=== PATIENT | male | born 1965 | race Caucasian/White ===

== ENCOUNTER 2023-09-09 09:25 | Emergency (ER) | payer BC, SELFPAY ==
[2023-09-09 09:40] VITALS: BP 143/87; PULSE 84; RESP 19; TEMP 36.7; O2SAT 98; BMI 29.0
--- NOTE | 2023-09-09 09:58 | ED_ITS ---
Discharge Plan Referrals Follow up/Referrals: Provider,Referral, [Primary Care Provider] - See instructions Discharge [facility] [place] HPI General Stated complaint: lower pain abd pain Mode of Arrival: Ambulatory Source of Information: Patient Limitations: No Limitations Time Seen by Provider: 09/09/23 09:59 Description of Symptoms (Recalled from Triage Doc. by RN): PATIENT C/O MID-LEFT ABDOMINAL PAIN THAT RADIATES AROUND TO BACK AND WORSENS WHEN HE LIES DOWN X 1 WEEK HEENT Symptoms (Recalled from RN notes): No Resp Symptoms (Recalled from RN notes): No Skin Symptoms (Recalled from RN notes): No MS Symptoms (Recalled from RN notes): No Functional Status (Recalled from RN notes): WNL History of Present Illness Provider Complaint: 58 yr old male presents for c/o of left mid abd pain that started a week ago, having bloating,pressure and cramping, now pain has started to radiating into flank and he is unable to lay down due to pain. Was seen at [facility] in [place] yesterday and given acid med and it did not help. Related Data Allergies Allergy/AdvReac Type Severity Reaction Status Date / Time No Known Drug Allergies Allergy Unknown Verified 09/09/23 09:56 [NKDA] Worker's Comp Is this a Worker's Comp case?: No [facility] Disclaimer: The information contained in this section may have been updated after the patient was seen, as this information can be updated by other users. 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) Smoking Status: Current every day smoker alcohol intake: never current occupational status: employed Travel in the last 8 weeks: None ROS Obtained: Yes All systems reviewed & no additional complaints except as documented Constitutional Constitutional: Reports system reviewed and no additional complaints, except as documented Eyes Eyes: Reports system reviewed and no additional complaints, except as documented ENT Ears, Nose, Mouth, and Throat: Reports system reviewed and no additional complaints, except as documented Cardiovascular Cardiovascular: Reports system reviewed and no additional complaints, except as documented Respiratory Respiratory: Reports system reviewed and no additional complaints, except as documented Gastrointestinal Gastrointestingal: Reports system reviewed and no additional complaints, except as documented, as per HPI, abdominal pain, belching, bloating and cramping Musculoskeletal Musculoskeletal: Reports system reviewed and no additional complaints, except as documented and Reports as per HPI Integumentary/Breasts Skin/Breast: Reports system reviewed and no additional complaints, except as documented Neurologic Neurologic: Reports system reviewed and no additional complaints, except as documented Endocrine Endocrine: Reports system reviewed and no additional complaints, except as documented Hematologic/Lymphatic Henatologic/Lymphatic: Reports system reviewed and no additional complaints, except as documented Allergic/Immunologic Allergic/Immunologic: Reports system reviewed and no additional complaints, except as documented Physical Exam General General appearance: alert and in no apparent distress Head Head exam: atraumatic Eye Eye exam: Present normal appearance and PERRL ENT ENT exam: Present normal exam, normal oropharynx, mucous membranes moist and TM's normal bilaterally Neck Neck exam: Present normal inspection Respiratory Respiratory exam: Present normal lung sounds bilaterally Cardiovascular Cardiovascular exam: Present regular rate and normal rhythm Abdominal Exam Abdominal exam: Present distention (slightly), tenderness and normal bowel sounds Abdominal tenderness: Present diffuse Neurological Exam Neurological exam: Present alert and oriented X3 Skin Skin exam: Present warm and intact Medical Decision Making Medical Records Medical records reviewed: Yes I reviewed the patient's medical records. Jose Inquiry Pt receiving controlled substance: No Jose was queried for this patient: No Vital Signs: 09/09/23 09:40 Temperature 98.1 F Temperature Source Oral Pulse Rate [Left Brachial] 84 Respiratory Rate 19 Blood Pressure [Left Arm] 143/87 H Blood Pressure Mean [Left Arm] 105 Blood Pressure Source [Left Arm] Automatic Cuff Blood Pressure Position [Left Arm] Sitting 02 Sat by Pulse Oximetry 98 Oxygen Delivery Method Room Air Medical Decision Narrative: spoke with er md and transfred to ed for eval
--- NOTE | 2023-09-09 10:07 | PC.NURSE ---
PATIENT SENT TO ER PER Olena BYRD FOR FURTHER EVALUATION. REPORT GIVEN TO DR. LOONEY BY Olena BYRD APRN. PATIENT AMBULATED TO ER WITH [facility] STAFF ASSIST AT THIS TIME
[2023-09-09 10:10] VITALS: BP 159/76; PULSE 89; RESP 14; TEMP 36.8; O2SAT 98; BMI 29.6
--- NOTE | 2023-09-09 10:17 | ECG_ITS ---
APPROVED REPORT Exam: Resting ECG HR:85 bpm ECG Measurements Heart Rate 85 AXES OH 133 P 43 QRSd 97 QRS 77 QT 358 T 52 QTc 400 Conclusion SINUS RHYTHM Electronically signed by : CHRIS LOONEY, 09/09/2023 17:21:54
[2023-09-09 10:57] LABS: Chloride 100 mmol/L (98-107); Potassium 3.9 mmoL/L (3.5-5.1); Sodium 136 mmol/L (136-145)
[2023-09-09 10:59] LABS: Blood Urea Nitrogen 8 mg/dl (9-20); Creatinine Clearance Estimated 123 mL/min (50-200); Estimated Glomerular Filt Rate 99 ml/min (>60); GFR (African American) 119 ML/MIN (>60)
[2023-09-09 11:00] LABS: Alanine Aminotransferase 35 U/L (12-78); Albumin/Globulin Ratio 1.3 (1.1-1.8); Alkaline Phosphatase 122 U/L (38-126); Anion Gap 6.9 mEq/L (5-15); Aspartate Amino Transferase 42 U/L (17-59); Basophils # 0.1 K/mm3 (0-0.2); Basophils % 1.3 % (0.1-2.0); Bilirubin,Total 0.5 mg/dl (0.2-1.3); Calcium 8.9 mg/dl (8.4-10.2); Carbon Dioxide 33 mmol/L (22.0-30.0); Eosinophils # 0.4 K/mm3 (0.0-0.4); Globulin 3.2 g/dL (1.3-3.2); Glucose 97 mg/dl (74-100); Hematocrit 40.9 % (42.0-52.0); Hemoglobin 13.7 g/dL (14.1-18.0); Lipase 33 U/L (23-300); Lymphocytes # 0.9 K/mm3 (0.7-4.5); Lymphocytes % 14.8 % (10-50); Mean Corpuscular HGB Conc 33.6 g/dL (31.8-35.4); Mean Corpuscular Hemoglobin 29.4 pg (27.0-31.2); Mean Corpuscular Volume 87.3 fl (80-94); Mean Platelet Volume 7.5 fl (7.4-10.4); Monocytes # 0.4 K/mm3 (0.1-1.0); Monocytes % 6.9 % (1.7-9.3); Neutrophils # 4.4 K/mm3 (1.8-7.8); Platelet Count 346 K/mm3 (142-424); Red Blood Count 4.68 M/mm3 (4.60-6.20); Red Cell Distribution Width 12.8 % (11.5-17.5); Total Protein,Serum 7.2 g/dl (6.3-8.2); White Blood Count 6.3 K/mm3 (4.8-10.8)
[2023-09-09 11:17] LABS: Troponin I < 0.01 ng/ml (0.00-0.034)
--- NOTE | 2023-09-09 11:26 | CT_ITS ---
FINAL REPORT TECHNIQUE: Thin section axial images were obtained through the abdomen after intravenous contrast. Reconstruction images were obtained from the axial data. Exam was performed using dose reduction techniques. CLINICAL HISTORY: diffuse abodominal pain, hx sbo COMPARISON: None FINDINGS: There has a left lower lobe nodule measuring 19 mm just posterior to the left major fissure on image 17. The lung bases are otherwise clear. The liver is homogeneous. The gallbladder is present. The spleen, adrenal glands, and pancreas are without acute abnormality. There is no hydronephrosis or solid renal mass. Abdominal GI tract is without acute abnormality. There is no evidence of small-bowel obstruction. There are multiple enlarged lymph nodes in the mesentery and retroperitoneum. Large retrocaval lymph node at the level of the mid kidneys measures 48 mm. A left periaortic lymph node on image 61 measures 28 mm. A right upper quadrant mesenteric conglomerate measures 63 mm. A right lower quadrant mesenteric conglomerate measures 71 mm. There is no evidence of ascites.. There is wall thickening of the urinary bladder with surrounding abnormal attenuation. The appendix is normal. There is rectal wall thickening which could represent proctitis or neoplasm. There is perirectal abnormal attenuation and pre sacral fluid. There is no pelvic lymphadenopathy. No acute osseous abnormalities identified. IMPRESSION: Rectal wall thickening with surrounding abnormal attenuation which could represent proctitis or rectal neoplasm. Correlate with any recent colonoscopy. Extensive abdominal lymphadenopathy consistent with either lymphoma or metastatic disease. Wall thickening of the urinary bladder, cystitis not excluded. Left lower lobe pulmonary nodule could be related to metastatic disease. Reviewed, Interpreted and Dictated by Vaishali Monreal MD Transcribed by Devi Mitchell Authenticated and [facility]
[2023-09-09] MEDS: IOPAMIDOL-370 (76%);100ML BOTTLE 75 ML IV (12:03)
[2023-09-09] MEDS: SODIUM CHLORIDE 0.9% 10ML SYR (RAD ONLY) 10 ML IV (12:03)
[2023-09-09 12:33] VITALS: BP 143/74; PULSE 84; O2SAT 99
[2023-09-09] MEDS: KETOROLAC 30MG/ML VIAL 15 MG IV (13:51)
[2023-09-09 14:48] VITALS: BP 143/74; PULSE 84; RESP 19; TEMP 36.7
--- NOTE | 2023-09-21 17:46 | HMH.EDGENADL ---
Discharge Plan Disposition Patient Disposition: Home, Self-Care Condition: Fair Prescriptions Prescriptions: New ketorolac 10 mg tablet 10 mg PO Q8H PRN (Reason: pain) 5 Days Qty: 20 0RF No Action oxycodone 10 mg tablet 10 mg PO .COMPLEX PRN (Reason: pain) Qty: 60 0RF Rx Instructions: 10 mg orally 1-2 tabs every 8 hours PRN; oxycodone 5 mg tablet 5 mg PO Q8H PRN (Reason: pain) Qty: 12 0RF Referrals Follow up/Referrals: Anahi Hensley MD [Staff Physician] - See instructions (Patient with concern for lymphoma or metastatic disease on CT imaging, hemodynamically stable and with approximately 2 weeks of abdominal pain. CBC, CMP reassuring. Recent travel) Provider,Referral, [Primary Care Provider] - See instructions Activity Restrictions/Add. Instructions Additional Instructions/Restrictions: I have placed a referral to a specialist and hematology who can further evaluate the cause of your abdominal pain and the findings on your CT imaging. Is important to follow-up with this doctor because of these findings could represent something such as cancer especially with your history of a bowel obstruction, this can be a red flag sign for cancer especially if you have not had any abdominal surgeries. I have prescribed a pain medication called ketorolac. In addition please take ibuprofen throughout the day and the other medications you are previously prescribed. Please return with any new or worsening symptoms. If you cannot be seen soon by this specialist please establish care with an internal medicine doctor. Clinical Impressions Clinical Impression: Lymphadenopathy, mesenteric Instructions Patient Instructions: DI for Acute Abdominal Pain Discharge ED Provider: Reynold Nelson Adult HPI General Chief complaint: Abdominal Pain Stated complaint: lower pain abd pain Time Seen by Provider: 09/09/23 09:59 Mode of Arrival: Ambulatory Source of Information: Patient Limitations: No Limitations Description of Symptoms (Recalled from ER Triage Doc. by RN): pt presents to ED with c/o stomach and back pain. symptoms ongoing for 1 week. pt reports pain radiating from left side of abdomen into his back. rates pain 8/10, describes pain at cramping and sharp. History of Present Illness HPI narrative: Patient describes 1 week of gradual in onset, constant, worsening, left-sided flank pain, moderate in severity, with associated loose stools, he denies any sick contacts however has had recent travel, no blood in his stools, no nausea or vomiting, pain is worsened with laying flat, has not had similar symptoms before, denies any daily medications or chronic medical issues. Travel was to [place]. He states he has had similar symptoms attributable to bowel obstruction but denies any abdominal surgeries. This was managed conservatively and was greater than 1 year ago. Patient does not see a doctor frequently. No dysuria or frequency. He is able to pass flatus. No blood in his stool. No recent antibiotics. Please note that above description of symptoms, in this electronic medical record under categorization of recalled from ER triage doctor by RN are reflective of an initial nursing assessment, however, is not reflective of my full history and physical exam that was personally taken and clarified. Consequentially, this preceding description of symptoms, which may include the patient's categorized chief complaint in the EMR, do not reflect my personal clinical impression, and the ultimate description of history of present illness and patient stated complaints should be deferred to this section of the note. Unless stated otherwise or congruent with this section of the note, additional signs, symptoms, or incongruence should be interpreted as inaccurate with my clinical impression. Related Data Previous Rx's Medication Instructions Recorded ketorolac 10 mg tablet 10 mg PO Q8H PRN pain 5 days #20 09/09/23 tabs oxycodone 5 mg tablet 5 mg PO Q8H PRN pain #12 tabs 09/10/23 oxycodone 10 mg tablet 10 mg PO .COMPLEX PRN pain #60 tabs 09/14/23 Allergies Allergy/AdvReac Type Severity Reaction Status Date / Time No Known Drug Allergies Allergy Unknown Verified 09/14/23 13:28 [NKDA] [facility] Disclaimer: The information contained in this section may have been updated after the patient was seen, as this information can be updated by other users. 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 No significant past medical history Social History Smoking Status: Never smoker alcohol intake: never current occupational status: employed Travel in the last 8 weeks: None ROS Obtained: Yes Systems reviewed as appropriate & no additional complaints except as documented As per HPI Physical Exam General General appearance: alert and in no apparent distress Head Head exam: atraumatic and normocephalic Eye Eye exam: Present normal appearance Neck Neck exam: Present normal inspection Chest Chest inspection: Present normal inspection and symmetric chest wall rise Respiratory Respiratory exam: Present normal lung sounds bilaterally; Absent respiratory distress Cardiovascular Cardiovascular exam: Present regular rate and normal rhythm Abdominal Exam Abdominal exam: Present soft and tenderness; Absent guarding or rebound Abdominal tenderness: Present LUQ, LLQ and mild Neurological Exam Neurological exam: Present alert and oriented X3 Psychiatric Psychiatric exam: Present normal affect and normal mood Skin Skin exam: Present warm and dry Medical Decision Making Medical Records Medical records reviewed: Yes I reviewed the patient's medical records. Jose Inquiry Pt receiving controlled substance: No Vital Signs: 09/09/23 09:40 09/09/23 10:10 09/09/23 12:33 Temperature 98.1 F 98.3 F Temperature Source Oral Oral Pulse Rate 84 Pulse Rate [Left Brachial] 84 89 Respiratory Rate 19 14 Blood Pressure 143/74 H Blood Pressure [Left Arm] 143/87 H 159/76 H Blood Pressure Mean [Left Arm] 105 103 Blood Pressure Source [Left Arm] Automatic Cuff Blood Pressure Position [Left Arm] Sitting 02 Sat by Pulse Oximetry 98 98 99 Oxygen Delivery Method Room Air Room Air Room Air 09/09/23 14:48 Temperature 98.0 F Temperature Source Pulse Rate 84 Pulse Rate [Left Brachial] Respiratory Rate 19 Blood Pressure 143/74 H Blood Pressure [Left Arm] Blood Pressure Mean [Left Arm] Blood Pressure Source [Left Arm] Blood Pressure Position [Left Arm] 02 Sat by Pulse Oximetry Oxygen Delivery Method Lab Data Lab Results 09/09/23 10:30: WBC 6.3, RBC 4.68, Hgb 13.7 L, Hct 40.9 L, MCV 87.3, MCH 29.4, MCHC 33.6, RDW 12.8, Plt Count 346, MPV 7.5, Neut % (Auto) 70.0, Lymph % (Auto) 14.8, [place] % (Auto) 6.9, Eos % (Auto) 7.0, Baso % (Auto) 1.3, Neut # (Auto) 4.4, Lymph # (Auto) 0.9, [place] # (Auto) 0.4, Eos # (Auto) 0.4, Baso # (Auto) 0.1, Sodium 136, Potassium 3.9, Chloride 100, Carbon Dioxide 33 H, Anion Gap 6.9, BUN 8 L, Creatinine 0.80, Estimated Creat Clear 123, Estimated GFR 99, Est GFR ( Amer) 119, Glucose 97, Calcium 8.9, Total Bilirubin 0.5, AST 42, ALT 35, Alkaline Phosphatase 122, Troponin I < 0.01, Total Protein 7.2, Albumin 4.0, Globulin 3.2, Albumin/Globulin Ratio 1.3, Lipase 33 09/09/23 10:30 09/09/23 10:30 Orders (Tests/Meds): ED MEDICATIONS Discontinued Medications Generic Name Dose Route Start Last Admin Trade Name Freq PRN Reason Stop Dose Admin Iopamidol 75 ml 09/09/23 12:01 09/09/23 12:03 Iopamidol-370 (76%);100ml Bottle IV 09/09/23 12:02 75 ml ONCE ONE Administration Ketorolac Tromethamine 15 mg 09/09/23 13:41 09/09/23 13:51 Ketorolac 30mg/Ml Vial IV 09/09/23 13:42 15 mg ONCE ONE Administration Sodium Chloride 10 ml 09/09/23 12:01 09/09/23 12:03 Sodium Chloride 0.9% 10ml Syr (Rad Only) IV 10/09/23 12:00 10 ml NEEDED PRN Administration Maintain IV Site ORDERS Category Date Time Status CT abdomen pelvis w con Stat Cat Scan 09/09/23 11:26 Completed CBC w/Auto Diff [Complete Blood Count Auto Diff] Stat Lab 09/09/23 10:30 Completed CMP [Comprehensive Metabolic Panel] Stat Lab 09/09/23 10:30 Completed Lipase Stat Lab 09/09/23 10:30 Completed Troponin I Q2H Lab 09/09/23 10:30 Completed Medical Decision Narrative: Patient with history and exam per above presenting for evaluation of left upper and left lower quadrant abdominal pain Diagnoses considered include Diverticulitis, Crohn's disease, ulcerative colitis, ureterolithiasis, bowel obstruction, bowel perforation, hernia, epiploic appendagitis, constipation, pyelonephritis, acute cystitis. Patient's presentation is not suggestive at this time of ACS, mesenteric ischemia, or ischemic colitis given time course, and absence of chest pain, no clinical evidence at this time to suggest dissection. Differential diagnosis also includes infectious diarrhea, mesenteric adenitis, neoplasm given history of spontaneous partial bowel obstruction and lack of routine healthcare to my understanding ED workup and treatment included: ED MEDICATIONS Discontinued Medications Generic Name Dose Route Start Last Admin Trade Name Vonda PRN Reason Stop Dose Admin Iopamidol 75 ml 09/09/23 12:01 09/09/23 12:03 Iopamidol-370 (76%);100ml Bottle IV 09/09/23 12:02 75 ml ONCE ONE Administration Ketorolac Tromethamine 15 mg 09/09/23 13:41 09/09/23 13:51 Ketorolac 30mg/Ml Vial IV 09/09/23 13:42 15 mg ONCE ONE Administration Sodium Chloride 10 ml 09/09/23 12:01 09/09/23 12:03 Sodium Chloride 0.9% 10ml Syr (Rad Only) IV 10/09/23 12:00 10 ml NEEDED PRN Administration Maintain IV Site ORDERS Category Date Time Status CT abdomen pelvis w con Stat Cat Scan 09/09/23 11:26 Completed CBC w/Auto Diff [Complete Blood Count Auto Diff] Stat Lab 09/09/23 10:30 Completed CMP [Comprehensive Metabolic Panel] Stat Lab 09/09/23 10:30 Completed Lipase Stat Lab 09/09/23 10:30 Completed Troponin I Q2H Lab 09/09/23 10:30 Completed Labs were independently interpreted by me, significant for no acute findings Imaging was independently visualized and interpreted by me, significant for no acute surgical pathology however diffuse adenopathy concerning for metastatic disease. Patient and family member at bedside were informed of these findings, including an overtly stated likelihood that these findings may represent cancer, and patient was instructed and given a referral to follow-up with hematology. My clinical impression at this time is most consistent with pain related to, at this time undifferentiated, diffuse mesenteric adenopathy I discussed my clinical impression with patient and answered all questions. The patient was advised that persistent or worsening symptoms require further evaluation. I confirmed the patient's understanding of this discussion. Critical Care Critical Care Time Critical Care Time: No
== END 2023-09-09 14:49 | disposition home or self-care (01) ==
LOC: UTC 09:30 → ER 10:08
PROVIDERS: Emergency Provider Emergency Medicine
DX: R10.32 Left lower quadrant pain (principal); M54.9 Dorsalgia, unspecified; F17.200 Nicotine dependence, unspecified, uncomplicated; I88.9 Nonspecific lymphadenitis, unspecified
CPT/HCPCS: 74177; 80053; 83690; 84484; 85025; 93005; 96374; 99285; Q9967

== ENCOUNTER 2023-09-10 11:14 | Emergency (ER) | payer BC, SELFPAY ==
[2023-09-10 11:19] VITALS: BP 164/78; PULSE 82; RESP 20; O2SAT 98
[2023-09-10 11:25] VITALS: BP 164/78; PULSE 82; RESP 18; TEMP 36.9; O2SAT 96; BMI 24.3
--- NOTE | 2023-09-10 11:39 | HMH.EDGENADL ---
Discharge Plan Disposition Patient Disposition: Home, Self-Care Condition: Good Prescriptions Prescriptions: New oxycodone 5 mg tablet 5 mg PO Q8H PRN (Reason: pain) Qty: 12 0RF No Action ketorolac 10 mg tablet 10 mg PO Q8H PRN (Reason: pain) 5 Days Qty: 20 0RF Referrals Follow up/Referrals: Anahi Hensley MD [Staff Physician] - See instructions Rigoberto Sousa DO [Staff Physician] - See instructions Best Gore MD [Staff Physician] - See instructions Provider,MD Pérez [Primary Care Provider] - See instructions Activity Restrictions/Add. Instructions Additional Instructions/Restrictions: You were evaluated in the emergency department today. Please shredder picker your prescription and take as needed for severe pain. Return to the emergency department for new or worsening symptoms. Please follow-up closely outpatient with a primary care provider as well as with oncology. Clinical Impressions Clinical Impression: Lymphadenopathy, mesenteric, Abdominal pain Instructions Patient Instructions: DI for Acute Abdominal Pain Discharge ED Provider: [facility] HPI General Chief complaint: Abdominal Pain Stated complaint: stomach pain Time Seen by Provider: 09/10/23 11:17 Mode of Arrival: Ambulatory Source of Information: Patient and Spouse Limitations: No Limitations Description of Symptoms (Recalled from ER Triage Doc. by RN): increasing abdominal pain. was evaluated yesterday History of Present Illness HPI narrative: This patient is a 58-year-old male presenting with concern for continued abdominal pain. Patient has had ongoing abdominal pain for weeks, but he was evaluated here yesterday for side abdominal pain and was found to have mesenteric lymphadenopathy on medical record review. CT scan is highly concerning for malignancy. Patient was discharged with referral to Dr. Hensley for oncology, which she is planning to do next week, however he has had continued pain despite taking Tylenol and Toradol at home. He has had no fevers, nausea, vomiting, changes in bowel movements such as constipation, diarrhea, hematochezia, melena, or other concerns. He states the pain has not changed, it just is persistent. It is mostly in the left upper quadrant/left flank region. He notes he has not gotten a good night sleep in several weeks secondary to the pain. At this time, he is presenting asking for a brief course of pain medication to get him through until the oncology appointment. He denies any other concerns or complaints. Related Data Previous Rx's Medication Instructions Recorded ketorolac 10 mg tablet 10 mg PO Q8H PRN pain 5 days #20 09/09/23 tabs oxycodone 5 mg tablet 5 mg PO Q8H PRN pain #12 tabs 09/10/23 Allergies Allergy/AdvReac Type Severity Reaction Status Date / Time No Known Drug Allergies Allergy Unknown Verified 09/09/23 09:56 [NKDA] [facility] Disclaimer: The information contained in this section may have been updated after the patient was seen, as this information can be updated by other users. 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 No significant past medical history Social History Smoking Status: Never smoker alcohol intake: never current occupational status: employed Travel in the last 8 weeks: None ROS Obtained: Yes All systems reviewed & no additional complaints except as documented Physical Exam General General appearance: alert and in no apparent distress Head Head exam: atraumatic and normocephalic Eye Eye exam: Present normal appearance, PERRL and EOMI ENT ENT exam: Present normal exam, normal oropharynx, mucous membranes moist and normal external ear exam Neck Neck exam: Present normal inspection, full ROM and trachea midline; Absent tenderness Chest Chest inspection: Present normal inspection and symmetric chest wall rise; Absent tenderness Respiratory Respiratory exam: Present normal lung sounds bilaterally; Absent respiratory distress, wheezes, stridor or accessory muscle use Cardiovascular Cardiovascular exam: Present regular rate and normal rhythm Abdominal Exam Abdominal exam: Present soft, distention (Mild), tenderness (Mild generalized) and normal bowel sounds; Absent guarding, rebound or rigidity Extremities Exam Extremities exam: Present normal inspection, full ROM and normal capillary refill; Absent tenderness or edema Back Exam Back exam: Present normal inspection and full ROM; Absent tenderness Neurological Exam Neurological exam: Present alert, oriented X3, CN II-XII intact and normal gait; Absent motor sensory deficit Psychiatric Psychiatric exam: Present normal affect and normal mood Skin Skin exam: Present warm and dry Medical Decision Making Medical Records Medical records reviewed: Yes I reviewed the patient's medical records. Jose Inquiry Pt receiving controlled substance: Yes Jose was queried for this patient: Yes Risks and benefits of using a controlled substance: were discussed with pt by me Vital Signs: 09/10/23 11:19 09/10/23 11:25 09/10/23 12:53 Temperature 98.4 F 98.4 F Temperature Source Oral Pulse Rate 82 84 Pulse Rate [Left Radial] 82 Respiratory Rate 20 18 18 Blood Pressure 164/78 H 149/75 H Blood Pressure [Left Arm] 164/78 H Blood Pressure Mean 110 Blood Pressure Mean [Left Arm] 106 02 Sat by Pulse Oximetry 98 96 Oxygen Delivery Method Room Air Lab Data Lab results reviewed: Yes I reviewed the patient's lab results. Lab Results 09/10/23 11:39: Urine Color Yellow, Urine Appearance Clear, Urine pH 6.5, Ur Specific [place] <= 1.005, Urine Protein Negative, Urine Glucose (UA) Negative, Urine Ketones Negative, Urine Blood Negative, Urine Nitrate Negative, Urine Bilirubin Negative, Urine Urobilinogen 0.2, Ur Leukocyte Esterase Negative, Urine RBC Occasional, Urine WBC Occasional, Urine Bacteria Trace 09/10/23 11:51: WBC 5.3, RBC 4.25 L, Hgb 12.5 L, Hct 36.6 L, MCV 86.1, MCH 29.4, MCHC 34.1, RDW 12.9, Plt Count 334, MPV 7.1 L, Neut % (Auto) 68.2, Lymph % (Auto) 16.3, Stephens % (Auto) 6.4, Eos % (Auto) 7.9, Baso % (Auto) 1.1, Neut # (Auto) 3.6, Lymph # (Auto) 0.9, Stephens # (Auto) 0.3, Eos # (Auto) 0.4, Baso # (Auto) 0.1, Sodium 132 L, Potassium 3.5, Chloride 96 L, Carbon Dioxide 34 H, Anion Gap 5.5, BUN 7 L, Creatinine 0.80, Estimated Creat Clear 107, Estimated GFR 99, Est GFR ( Amer) 119, Glucose 119 H, Lactate 0.6 L, Calcium 8.7, Total Bilirubin 0.6, AST 42, ALT 36, Alkaline Phosphatase 108, Total Protein 6.7, Albumin 3.6, Globulin 3.1, Albumin/Globulin Ratio 1.2, Lipase 39 09/10/23 11:51 09/10/23 11:51 Orders (Tests/Meds): ED MEDICATIONS Discontinued Medications Generic Name Dose Route Start Last Admin Trade Name Freq PRN Reason Stop Dose Admin Ondansetron HCl 4 mg 09/10/23 11:44 09/10/23 11:50 Ondansetron 4mg Odt SL 09/10/23 11:45 4 mg ONCE ONE Administration Oxycodone HCl 5 mg 09/10/23 11:45 09/10/23 11:50 Oxycodone 5mg Immediate Release Tablet PO 09/10/23 11:46 5 mg ONCE ONE Administration ORDERS Category Date Time Status Complete Blood Count Auto Diff Stat Lab 09/10/23 11:51 Completed Comprehensive Metabolic Panel Stat Lab 09/10/23 11:51 Completed Lactic Acid Stat Lab 09/10/23 11:51 Completed Lipase Stat Lab 09/10/23 11:51 Completed Urinalysis and Microscopic Stat Lab 09/10/23 11:39 Completed Medical Decision Narrative: In summary, this patient is a 58-year-old male presenting to the Emergency Department for evaluation of continued abdominal pain since evaluation yesterday. Differential diagnoses considered include but are not limited to worsening lymphadenopathy, metastatic disease, bowel obstruction, constipation, colitis, proctitis. Ruling out the most morbid conditions drove assessment. I reviewed patient's past medical records and noted his labs and CT scan yesterday as per HPI. I did have a discussion with the patient to make sure that he understands the findings that were present on his prior CT scan. On exam, the patient is in no acute distress with reassuring vital signs on cardiac telemetry. His biggest concern is that he wants stronger pain medication to get him through to an oncology appointment. No significant changes in symptoms at this time since evaluation yesterday. Workup included CBC, CMP, lipase, lactic acid, urinalysis. I did consider reimaging, however given lack of change in symptoms, I do not feel that this would frame changer. Patient was given oral oxycodone for pain. Labs do not demonstrate any acute changes from previous labs, and no significantly concerning abnormalities at this time. Patient was given oral oxycodone with good improvement in his pain. At this time, I offered admission for symptomatic management and further evaluation and management, however patient elects to go home. I did give him a brief prescription for oxycodone for improvement of his likely cancer related pain. Strict return precautions were given, as well as instructions for close patient follow-up. Patient was discharged in stable condition after all questions were answered. Critical Care Critical Care Time Critical Care Time: No
[2023-09-10] MEDS: ONDANSETRON 4MG ODT 4 MG SL (11:50)
[2023-09-10] MEDS: OXYCODONE 5MG IMMEDIATE RELEASE TABLET 5 MG PO (11:50)
[2023-09-10 12:00] LABS: Microscopic, Urine URINE MICROSCOPIC (MICROSCOPIC)
[2023-09-10 12:05] LABS: Appearance,Urine CLEAR (Clear); Bilirubin,Urine Negative (Negative); Blood, Urine Negative (Negative); Color,Urine YELLOW (Yellow); Glucose,Urine (UA) Negative (Negative); Ketones,Urine Negative (Negative); Leukocyte Esterase,Urine Negative (Negative); Nitrate,Urine Negative (Negative); PH,Urine 6.5 (5.0-8.5); Protein,Urine Negative (Negative); Specific Gravity, Urine <= 1.005 (1.005-1.030); Urobilinogen,Urine 0.2 EU/dl (0.2)
[2023-09-10 12:14] LABS: Chloride 96 mmol/L (98-107); Potassium 3.5 mmoL/L (3.5-5.1); Sodium 132 mmol/L (136-145)
[2023-09-10 12:16] LABS: Alanine Aminotransferase 36 U/L (12-78); Aspartate Amino Transferase 42 U/L (17-59); Blood Urea Nitrogen 7 mg/dl (9-20); Creatinine Clearance Estimated 107 mL/min (50-200); Estimated Glomerular Filt Rate 99 ml/min (>60); GFR (African American) 119 ML/MIN (>60); Lactic Acid 0.6 mmol/L (0.7-2.1)
[2023-09-10 12:17] LABS: Albumin Level 3.6 g/dl (3.5-5.0); Albumin/Globulin Ratio 1.2 (1.1-1.8); Alkaline Phosphatase 108 U/L (38-126); Anion Gap 5.5 mEq/L (5-15); Bilirubin,Total 0.6 mg/dl (0.2-1.3); Calcium 8.7 mg/dl (8.4-10.2); Carbon Dioxide 34 mmol/L (22.0-30.0); Globulin 3.1 g/dL (1.3-3.2); Glucose 119 mg/dl (74-100); Lipase 39 U/L (23-300); Total Protein,Serum 6.7 g/dl (6.3-8.2)
[2023-09-10 12:19] LABS: Basophils # 0.1 K/mm3 (0-0.2); Basophils % 1.1 % (0.1-2.0); Eosinophils # 0.4 K/mm3 (0.0-0.4); Eosinophils % 7.9 % (0.1-12.0); Hematocrit 36.6 % (42.0-52.0); Hemoglobin 12.5 g/dL (14.1-18.0); Lymphocytes # 0.9 K/mm3 (0.7-4.5); Lymphocytes % 16.3 % (10-50); Mean Corpuscular HGB Conc 34.1 g/dL (31.8-35.4); Mean Corpuscular Hemoglobin 29.4 pg (27.0-31.2); Mean Corpuscular Volume 86.1 fl (80-94); Mean Platelet Volume 7.1 fl (7.4-10.4); Monocytes # 0.3 K/mm3 (0.1-1.0); Monocytes % 6.4 % (1.7-9.3); Neutrophils # 3.6 K/mm3 (1.8-7.8); Neutrophils % 68.2 % (37.0-80.0); Platelet Count 334 K/mm3 (142-424); Red Blood Count 4.25 M/mm3 (4.60-6.20); Red Cell Distribution Width 12.9 % (11.5-17.5); White Blood Count 5.3 K/mm3 (4.8-10.8)
[2023-09-10 12:43] LABS: Bacteria,Urine Trace /lpf
[2023-09-10 12:47] LABS: RBC,Urine Occasional #/hpf (0-3); WBC,Urine Occasional #/hpf (0-3)
[2023-09-10 12:53] VITALS: BP 149/75; PULSE 84; RESP 18; TEMP 36.9
== END 2023-09-10 12:55 | disposition home or self-care (01) ==
PROVIDERS: Emergency Provider Emergency Medicine
DX: I88.0 Nonspecific mesenteric lymphadenitis (principal); R10.12 Left upper quadrant pain
CPT/HCPCS: 80053; 81001; 83605; 83690; 85025; 99285

== ENCOUNTER 2023-09-14 13:55 | Outpatient (CLI) | payer BC, SELFPAY ==
[2023-09-14 14:29] LABS: Chloride 99 mmol/L (98-107); Sodium 138 mmol/L (136-145)
[2023-09-14 14:30] LABS: Potassium 4.6 mmoL/L (3.5-5.1)
[2023-09-14 14:32] LABS: Alanine Aminotransferase 68 U/L (12-78); Alkaline Phosphatase 122 U/L (38-126); Anion Gap 8.6 mEq/L (5-15); Aspartate Amino Transferase 54 U/L (17-59); Bilirubin,Total 0.5 mg/dl (0.2-1.3); Blood Urea Nitrogen 10 mg/dl (9-20); Calcium 9.1 mg/dl (8.4-10.2); Carbon Dioxide 35 mmol/L (22.0-30.0); Estimated Glomerular Filt Rate 68 ml/min (>60); GFR (African American) 83 ML/MIN (>60); Glucose 98 mg/dl (74-100); Iron 49 ug/dL (49-181)
[2023-09-14 14:33] LABS: Albumin/Globulin Ratio 1.4 (1.1-1.8); Globulin 2.8 g/dL (1.3-3.2); Total Protein,Serum 6.8 g/dl (6.3-8.2)
[2023-09-14 14:42] LABS: Total Iron Binding Capacity 286 ug/dL (261-462)
[2023-09-14 15:08] LABS: Ferritin 289 ng/ml (17.9-464)
[2023-09-14 15:32] LABS: Basophils # 0.1 K/mm3 (0-0.2); Eosinophils # 0.5 K/mm3 (0.0-0.4); Eosinophils % 10.7 % (0.1-12.0); Hematocrit 39.2 % (42.0-52.0); Lymphocytes # 0.9 K/mm3 (0.7-4.5); Lymphocytes % 21.2 % (10-50); Mean Corpuscular HGB Conc 33.1 g/dL (31.8-35.4); Mean Corpuscular Hemoglobin 29.2 pg (27.0-31.2); Mean Corpuscular Volume 88.1 fl (80-94); Mean Platelet Volume 7.4 fl (7.4-10.4); Monocytes # 0.3 K/mm3 (0.1-1.0); Monocytes % 7.4 % (1.7-9.3); Neutrophils # 2.6 K/mm3 (1.8-7.8); Neutrophils % 58.7 % (37.0-80.0); Platelet Count 438 K/mm3 (142-424); Red Blood Count 4.45 M/mm3 (4.60-6.20); Red Cell Distribution Width 12.8 % (11.5-17.5); White Blood Count 4.5 K/mm3 (4.8-10.8)
[2023-09-15 14:59] LABS: CEA 1.1 ng/mL (0.0-4.7)
== END 2023-09-14 23:59 ==
LOC: LAB 13:55
PROVIDERS: Visit Provider Internal Medicine Medical Oncology
DX: R91.1 Solitary pulmonary nodule (principal)
CPT/HCPCS: 36415; 80053; 82378; 82728; 83540; 83550; 85025

== ENCOUNTER 2023-09-25 13:53 | Outpatient (CLI) | payer BC, SELFPAY ==
[2023-09-25 14:19] LABS: Basophils # 0.1 K/mm3 (0-0.2); Basophils % 1.1 % (0.1-2.0); Eosinophils # 0.3 K/mm3 (0.0-0.4); Eosinophils % 4.4 % (0.1-12.0); Hematocrit 36.3 % (42.0-52.0); Hemoglobin 12.1 g/dL (14.1-18.0); Lymphocytes # 1.2 K/mm3 (0.7-4.5); Lymphocytes % 16.2 % (10-50); Mean Corpuscular HGB Conc 33.4 g/dL (31.8-35.4); Mean Corpuscular Hemoglobin 28.5 pg (27.0-31.2); Mean Corpuscular Volume 85.5 fl (80-94); Mean Platelet Volume 7.4 fl (7.4-10.4); Monocytes # 0.5 K/mm3 (0.1-1.0); Neutrophils # 5.4 K/mm3 (1.8-7.8); Neutrophils % 72.3 % (37.0-80.0); Platelet Count 448 K/mm3 (142-424); Red Blood Count 4.24 M/mm3 (4.60-6.20); Red Cell Distribution Width 13.1 % (11.5-17.5); White Blood Count 7.5 K/mm3 (4.8-10.8)
[2023-09-25 14:45] LABS: Activated Partial Thrombo Time 32.5 seconds (22.8-30.6); INR 1.04 (0.9-1.1); Prothrombin Time 11.2 seconds (10.1-12.5)
[2023-09-25 14:48] LABS: Blood Urea Nitrogen 12 mg/dl (9-20); Estimated Glomerular Filt Rate 86 ml/min (>60); GFR (African American) 104 ML/MIN (>60)
== END 2023-09-25 23:59 ==
LOC: LAB 13:56
PROVIDERS: Visit Provider Internal Medicine Medical Oncology
DX: R59.0 Localized enlarged lymph nodes (principal)
CPT/HCPCS: 36415; 82565; 84520; 85025; 85610; 85730

== ENCOUNTER 2023-09-27 07:04 | Outpatient (CLI) | payer BC, SELFPAY ==
[2023-09-27] VITALS (12 sets, daily range): BP systolic 108–144; BP diastolic 67–79; PULSE 69–85; RESP 18; TEMP 36.3–36.8; O2SAT 98–100; BMI 29.5
--- NOTE | 2023-09-27 07:15 | CT_ITS ---
FINAL REPORT CLINICAL HISTORY: .left retroperitoneal fna lymph node 5 versed and 100 fentanyl FINDINGS: CT-guided retroperitoneal core biopsy HISTORY: Retroperitoneal lymphadenopathy ATTENDING PHYSICIAN: Dr. Bojorquez PHYSICIAN GI ASST: Micah Renee PA-C PROCEDURE: After informed consent was obtained and a timeout was performed, the patient was prepped and draped in usual sterile fashion over the left flank. Utilizing local anesthesia and sterile technique with a coaxial system, access to lesion was obtained under direct CT guidance. A total of 5 separate 18-gauge core biopsies were obtained. Post biopsy films demonstrate no evidence of acute complication. The patient received moderate procedural sedation. The patient tolerated the procedure well and left the department in good condition. the attending pathologist assistant terminal manager stated the samples were diagnostic. PROCEDURAL SEDATION: 5 mg of IV Versed and 100 mcg of Fentanyl were administered. Continuous vital sign monitoring was used. An RN was present during the sedation process. Overall sedation time was 30 minutes. IMPRESSION: Status post CT guided core biopsy of retroperitoneal lymphadenopathy without immediate complication. Films reviewed , interpreted and dictated by Dr. Bojorquez. Transcribed by Micah Renee PA-C. Reviewed, Interpreted and Dictated by Mihir Bojorquez III, MD Transcribed by KELIN Friedman Authenticated and [facility]
[2023-09-27 07:58] LABS: Basophils # 0.1 K/mm3 (0-0.2); Eosinophils # 0.3 K/mm3 (0.0-0.4); Eosinophils % 5.5 % (0.1-12.0); Hematocrit 39.1 % (42.0-52.0); Hemoglobin 12.7 g/dL (14.1-18.0); Lymphocytes # 1.1 K/mm3 (0.7-4.5); Lymphocytes % 20.4 % (10-50); Mean Corpuscular HGB Conc 32.4 g/dL (31.8-35.4); Mean Corpuscular Hemoglobin 27.6 pg (27.0-31.2); Mean Corpuscular Volume 85.2 fl (80-94); Mean Platelet Volume 7.2 fl (7.4-10.4); Monocytes # 0.7 K/mm3 (0.1-1.0); Monocytes % 12.6 % (1.7-9.3); Neutrophils # 3.3 K/mm3 (1.8-7.8); Neutrophils % 59.5 % (37.0-80.0); Platelet Count 436 K/mm3 (142-424); Red Blood Count 4.59 M/mm3 (4.60-6.20); White Blood Count 5.5 K/mm3 (4.8-10.8)
[2023-09-27 08:01] LABS: Chloride 106 mmol/L (98-107); Potassium 3.8 mmoL/L (3.5-5.1); Sodium 140 mmol/L (136-145)
[2023-09-27 08:03] LABS: Blood Urea Nitrogen 8 mg/dl (9-20); Creatinine Clearance Estimated 122 mL/min (50-200); Estimated Glomerular Filt Rate 99 ml/min (>60); GFR (African American) 119 ML/MIN (>60)
[2023-09-27 08:04] LABS: Alanine Aminotransferase 43 U/L (12-78); Albumin Level 4.1 g/dl (3.5-5.0); Albumin/Globulin Ratio 1.2 (1.1-1.8); Alkaline Phosphatase 124 U/L (38-126); Anion Gap 3.8 mEq/L (5-15); Aspartate Amino Transferase 42 U/L (17-59); Bilirubin,Total 0.4 mg/dl (0.2-1.3); Calcium 9.4 mg/dl (8.4-10.2); Carbon Dioxide 34 mmol/L (22.0-30.0); Globulin 3.4 g/dL (1.3-3.2); Glucose 117 mg/dl (74-100); Iron 51 ug/dL (49-181); Total Protein,Serum 7.5 g/dl (6.3-8.2)
[2023-09-27] MEDS: LACTATED RINGERS 1000ML 1,000 ML 25 ML IV (08:11)
[2023-09-27 08:13] LABS: Total Iron Binding Capacity 296 ug/dL (261-462)
[2023-09-27 08:41] LABS: Ferritin 205 ng/ml (17.9-464)
--- NOTE | 2023-09-27 09:45 | PC.NURSE ---
PT RESTING IN BED. NO NEEDS OR CONCERNS VOICED. FAMILY MEMBER AT BEDSIDE.
[2023-09-28 08:54] LABS: CEA 1.2 ng/mL (0.0-4.7)
== END 2023-09-27 11:00 | disposition home or self-care (01) ==
PROVIDERS: PCP Internal Medicine Medical Oncology; Visit Provider Internal Medicine Medical Oncology
DX: R59.0 Localized enlarged lymph nodes (principal); R10.11 Right upper quadrant pain; R71.8 Other abnormality of red blood cells; R73.09 Other abnormal glucose
CPT/HCPCS: 49180; 77012; 80053; 82378; 82728; 83540; 83550; 85025

== ENCOUNTER 2023-10-05 10:10 | Outpatient (CLI) | payer BC, SELFPAY ==
[2023-10-05 10:42] LABS: Basophils # 0.1 K/mm3 (0-0.2); Eosinophils # 0.3 K/mm3 (0.0-0.4); Eosinophils % 5.9 % (0.1-12.0); Hematocrit 39.4 % (42.0-52.0); Hemoglobin 13.1 g/dL (14.1-18.0); Lymphocytes # 1.3 K/mm3 (0.7-4.5); Lymphocytes % 22.2 % (10-50); Mean Corpuscular HGB Conc 33.1 g/dL (31.8-35.4); Mean Corpuscular Hemoglobin 28.4 pg (27.0-31.2); Mean Corpuscular Volume 85.6 fl (80-94); Mean Platelet Volume 7.5 fl (7.4-10.4); Monocytes # 0.4 K/mm3 (0.1-1.0); Monocytes % 6.4 % (1.7-9.3); Neutrophils # 3.8 K/mm3 (1.8-7.8); Neutrophils % 64.5 % (37.0-80.0); Platelet Count 410 K/mm3 (142-424); Red Cell Distribution Width 13.3 % (11.5-17.5); White Blood Count 5.9 K/mm3 (4.8-10.8)
[2023-10-05 10:55] LABS: Activated Partial Thrombo Time 31.9 seconds (22.8-30.6); INR 1.02 (0.9-1.1)
[2023-10-05 11:20] LABS: Alanine Aminotransferase 44 U/L (12-78); Albumin Level 4.2 g/dl (3.5-5.0); Albumin/Globulin Ratio 1.4 (1.1-1.8); Alkaline Phosphatase 99 U/L (38-126); Anion Gap 12.1 mEq/L (5-15); Aspartate Amino Transferase 38 U/L (17-59); Bilirubin,Total 0.4 mg/dl (0.2-1.3); Blood Urea Nitrogen 13 mg/dl (9-20); Calcium 9.6 mg/dl (8.4-10.2); Carbon Dioxide 27 mmol/L (22.0-30.0); Chloride 102 mmol/L (98-107); Estimated Glomerular Filt Rate 86 ml/min (>60); GFR (African American) 104 ML/MIN (>60); Glucose 137 mg/dl (74-100); Lactate Dehydrogenase 307 U/L (313-618); Potassium 4.1 mmoL/L (3.5-5.1); Sodium 137 mmol/L (136-145); Total Protein,Serum 7.2 g/dl (6.3-8.2)
[2023-10-06 13:37] LABS: Hep B Surface Ab, Qual Non Reactive (.); Hepatitis B Surface Antigen Negative (Negative)
[2023-10-08 19:14] LABS: Beta-2 Microglobulin 2.1 mg/L (0.6-2.4)
== END 2023-10-05 23:59 | disposition home or self-care (01) ==
LOC: LAB 10:10
PROVIDERS: Visit Provider Internal Medicine Medical Oncology
DX: C83.30 Diffuse large B-cell lymphoma, unspecified site (principal); Z79.899 Other long term (current) drug therapy
CPT/HCPCS: 36415; 80053; 82232; 83615; 84550; 85025; 85610; 85730; 86706; 87340

== ENCOUNTER 2023-10-06 06:57 | Outpatient (CLI) | payer BC, SELFPAY ==
[2023-10-06] VITALS (12 sets, daily range): BP systolic 108–138; BP diastolic 55–79; PULSE 75–92; RESP 17–18; TEMP 36.2–36.4; O2SAT 75–100; BMI 28.8
--- NOTE | 2023-10-06 | CA_ITS ---
APPROVED REPORT EXAM: Comprehensive 2D, Doppler, and color-flow Echocardiogram Heel Slicker: Kelley Smith CRT Ht: 5 ft 8 in Wt: 197lbs BSA: 2.03 BP: 135/70 mmHg Indications: Shortness of Breath, Palpitations 2D Dimensions LA Volume 57.70 mL LA Volume Index 27.70 mL/m2 (M/F) 16-34 M-Mode Dimensions RVDd 3.23 cm (0.9-2.6) LA Diam 3.32 cm (1.9-4.0) LVDd 4.10 cm (3.5-5.7) LVDs 2.64 cm (3.5-5.7) IVSd 1.52 cm (0.6-1.1) PWd 0.81 cm (0.6-1.1) EF (Teich) 65.50% FS 35.60% EDV (Teich) 74.20 mL TAPSE 2.45 (<1.7) ESV (Teich) 25.60 mL LV Diastology E Decel Time 230 (160-240 msec) E/A Ratio 0.78 MED A' 9.30 cm/s LAT A' 11.30 cm/s Aortic Valve AO Peak GR. 8.10 mmHg Mitral Valve MV A Velocity 88.0 (40-130 cm/s) E/A Ratio 0.78 Pulmonary Valve PV Peak Velocity 131.0 (50-150 cm/s) Tricuspid Valve TR P. Velocity 94.00 cm/s RAP Estimate 10.00 mmHg RVSP 13.50 mmHg Left Ventricle The left ventricle is normal size. The left ventricular systolic function is normal. The left ventricular ejection fraction is within the normal range. There is increased LV wall thickness. Proximal septal thickening is noted. There is normal LV segmental wall motion. Transmitral Doppler flow pattern suggests impaired LV relaxation. LVEF is 60%. Right Ventricle The right ventricle is normal size. The right ventricular systolic function is normal. Atria The left atrium size is normal. The right atrium size is normal. There is no Doppler evidence of interatrial shunt. Aortic Valve The aortic valve is mildly thickened. There is focal nodular calcification of the noncoronary cusp. There is no aortic valvular stenosis. No aortic regurgitation is present. Mitral Valve The mitral valve leaflets are mildly thickened. No evidence of mitral valve stenosis. There is no mitral valve regurgitation noted. Tricuspid Valve The tricuspid valve leaflets are thin and pliable. Trace tricuspid regurgitation. There is insufficient TR jet to estimate RVSP. Pulmonic Valve The pulmonary valve is normal in structure. Mild pulmonic regurgitation. Great Vessels The aortic root is normal in size. The ascending aorta is normal in size. IVC is normal in size and collapses >50% with inspiration. Pericardium There is no pericardial effusion. Other Information Study Quality: Fair Conclusion Normal biventricular systolic function. Mild [place]. Electronically signed by : Mary Cooper MD 10/09/2023 12:48:53
--- NOTE | 2023-10-06 07:02 | CT_ITS ---
FINAL REPORT CLINICAL HISTORY: .B- CELL LYMPHOMA 5 VERSED/100 FENTANYL FINDINGS: CT GUIDED BONE MARROW BIOPSY. HISTORY: lymphoma. ATTENDING PHYSICIAN: Dr. Bojorquez PHYSICIAN ASSEMBLY TECHNICIAN: Vinny Rojas PA-C PROCEDURE: After informed consent was obtained and a timeout was performed, the patient was prepped and draped in usual sterile fashion over the left posterior iliac crest. Utilizing local anesthesia and sterile technique with a bone marrow biopsy system, access to the marrow was obtained. And marrow aspirate and core samples were obtained. The patient received mild procedural sedation. The patient tolerated the procedure well and left the department in good condition. IMPRESSION: Status post CT guided biopsy of the bone marrow without immediate complication. PROCEDURAL SEDATION: 5 mg of IV Versed and 100 mcg of Fentanyl were administered. Continuous vital sign monitoring was used. An RN was present during the sedation process. Overall sedation time was 30 minutes. Films reviewed , interpreted and dictated by Dr. Bojorquez Transcribed by Vinny Rojas PA-C. Reviewed, Interpreted and Dictated by Mihir Bojorquez III, MD Transcribed by KELIN Gonzalez Authenticated and [facility]
== END 2023-10-06 10:45 | disposition home or self-care (01) ==
PROVIDERS: Visit Provider Internal Medicine Medical Oncology
DX: C83.30 Diffuse large B-cell lymphoma, unspecified site (principal)
CPT/HCPCS: 38221; 77012; 93306

== ENCOUNTER 2023-10-14 14:04 | Emergency (ER) | payer BC, SELFPAY ==
[2023-10-14 14:10] VITALS: BP 161/81; PULSE 80; RESP 18; TEMP 36.7; O2SAT 99; BMI 28.3
--- NOTE | 2023-10-14 14:24 | EXP.UTC ---
Discharge Plan Disposition Patient Disposition: Home, Self-Care Condition: Good Prescriptions Prescriptions: New ondansetron 4 mg Tablet,Disintegrating 4 mg PO Q8H PRN (Reason: Nausea) Qty: 12 0RF Referrals Follow up/Referrals: Provider,Referral, MD [Primary Care Provider] - See instructions Activity Restrictions/Add. Instructions Additional Instructions/Restrictions: Drink plenty of fluids. Take tylenol for pain or fever. Take the zofran as directed for nausea. Follow up with your regular doctor within the next 48 hours for a recheck. Return and go through the ER for any worsening symptoms. GO TO THE ER FOR ANY WORSENING SYMPTOMS Clinical Impressions Clinical Impression: Acute viral syndrome, Gastroenteritis Instructions Patient Instructions: Viral Gastroenteritis, DI for Viral Gastroenteritis -- Adult, Ondansetron Discharge ED Provider: Josse Caro [facility] General Stated complaint: abd pain diarrhea Time Seen by Provider: 10/14/23 14:23 History of Present Illness Provider Complaint: He states that since last night he has had diarrhea, abdominal cramping and nausea. He has not vomited. He has had a poor appetite also. He denies any known sick contacts. Related Data Previous Rx's Medication Instructions Recorded ondansetron 4 mg disintegrating 4 mg PO Q8H PRN Nausea #12 tabs 10/14/23 tablet Allergies Allergy/AdvReac Type Severity Reaction Status Date / Time No Known Drug Allergies Allergy Unknown Verified 10/14/23 14:28 [NKDA] [facility] Disclaimer: The information contained in this section may have been updated after the patient was seen, as this information can be updated by other users. 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 (Updated 10/14/23 @ 15:23 by Josse Caro APRN) Arrhythmia Surgical History History of arthroscopic knee surgery History of hand surgery Family History Other No significant family history Social History Smoking Status: Never smoker alcohol intake: never current occupational status: employed Travel in the last 8 weeks: None ROS Obtained: Yes All systems reviewed & no additional complaints except as documented Constitutional Constitutional: Denies chills, Denies fever(s) and Reports poor appetite ENT Ears, Nose, Mouth, and Throat: Denies dizziness and Denies sore throat Cardiovascular Cardiovascular: Denies dyspnea Respiratory Respiratory: Denies chest congestion, Denies cough and Denies dyspnea Gastrointestinal Gastrointestingal: Reports as per HPI, cramping, diarrhea and nausea; Denies abdominal pain, hematochezia, melena or vomiting Musculoskeletal Musculoskeletal: Denies arthralgias Integumentary/Breasts Skin/Breast: Denies rash Neurologic Neurologic: Denies dizziness Physical Exam General General appearance: alert and in no apparent distress Head Head exam: atraumatic and normocephalic Eye Eye exam: Present normal appearance, PERRL and EOMI ENT ENT exam: Present normal exam, normal oropharynx, mucous membranes moist, TM's normal bilaterally and normal external ear exam Neck Neck exam: Present normal inspection, full ROM and trachea midline; Absent tenderness, meningismus or lymphadenopathy Chest Chest inspection: Present normal inspection and symmetric chest wall rise; Absent tenderness, rash or abscess Respiratory Respiratory exam: Present normal lung sounds bilaterally; Absent respiratory distress, wheezes or stridor Cardiovascular Cardiovascular exam: Present regular rate and normal rhythm; Absent irregular rhythm, systolic murmur, diastolic murmur or JVD Abdominal Exam Abdominal exam: Present soft and hyperactive bowel sounds; Absent distention, tenderness, guarding, rebound, rigidity, psoas sign, obturator sign, heel tap sign, Leigh's sign, Rovsing's sign or tenderness at McBurney's Point Extremities Exam Extremities exam: Present normal inspection and full ROM; Absent tenderness Back Exam Back exam: Present normal inspection and full ROM; Absent tenderness, CVA tenderness (R) or CVA tenderness (L) Neurological Exam Neurological exam: Present alert, oriented X3 and CN II-XII intact Psychiatric Psychiatric exam: Present normal affect and normal mood Skin Skin exam: Present warm, dry, intact and normal color Lymphatic Lymphatic Findings: no adenopathy Medical Decision Making Medical Records Medical records reviewed: No I reviewed the patient's medical records. Jose Inquiry Pt receiving controlled substance: No Lab Data Lab results reviewed: Yes I reviewed the patient's lab results. 10/14/23 14:57 10/14/23 14:57
[2023-10-14 14:29] LABS: Apearance,Urine Clear (Clear); Bilirubin,Urine Negative (Negative); Blood, Urine Negative (Negative); Color,Urine Yellow (Yellow); Glucose,Urine (UA) Negative (Negative); Ketones,Urine Negative (Negative); PH,Urine 5.5 (5.0-8.5); Protein,Urine Negative (Negative); UTC Leukocyte Esterase,Urine Negative (Negative); UTC Nitrate,Urine Negative (Negative); Urobilinogen,Urine 0.2 EU/dl (0.2)
[2023-10-14 14:34] LABS: UTC Influenza A Antigen Negative (Negative)
[2023-10-14 14:35] LABS: UTC Influenza B Antigen Negative (Negative)
[2023-10-14 15:13] LABS: Basophils # 0.1 K/mm3 (0-0.2); Basophils % 0.9 % (0.1-2.0); Eosinophils # 0.2 K/mm3 (0.0-0.4); Eosinophils % 2.6 % (0.1-12.0); Hematocrit 41.7 % (42.0-52.0); Hemoglobin 13.8 g/dL (14.1-18.0); Lymphocytes % 10.3 % (10-50); Mean Corpuscular HGB Conc 33.2 g/dL (31.8-35.4); Mean Corpuscular Hemoglobin 28.3 pg (27.0-31.2); Mean Corpuscular Volume 85.3 fl (80-94); Mean Platelet Volume 7.4 fl (7.4-10.4); Monocytes # 0.4 K/mm3 (0.1-1.0); Monocytes % 4.3 % (1.7-9.3); Neutrophils # 7.6 K/mm3 (1.8-7.8); Neutrophils % 81.9 % (37.0-80.0); Platelet Count 399 K/mm3 (142-424); Red Blood Count 4.89 M/mm3 (4.60-6.20); Red Cell Distribution Width 14.1 % (11.5-17.5); White Blood Count 9.3 K/mm3 (4.8-10.8)
[2023-10-14 15:14] LABS: Chloride 102 mmol/L (98-107); Potassium 4.2 mmoL/L (3.5-5.1); Sodium 136 mmol/L (136-145)
[2023-10-14 15:16] LABS: Alanine Aminotransferase 28 U/L (12-78); Amylase 70 U/L (30-110); Aspartate Amino Transferase 32 U/L (17-59); Bilirubin,Total 0.7 mg/dl (0.2-1.3); Blood Urea Nitrogen 11 mg/dl (9-20); Creatinine Clearance Estimated 117 mL/min (50-200); Estimated Glomerular Filt Rate 99 ml/min (>60); GFR (African American) 119 ML/MIN (>60)
[2023-10-14 15:17] LABS: Albumin Level 4.3 g/dl (3.5-5.0); Albumin/Globulin Ratio 1.3 (1.1-1.8); Alkaline Phosphatase 94 U/L (38-126); Anion Gap 9.2 mEq/L (5-15); Calcium 9.3 mg/dl (8.4-10.2); Carbon Dioxide 29 mmol/L (22.0-30.0); Globulin 3.3 g/dL (1.3-3.2); Glucose 119 mg/dl (74-100); Lipase 40 U/L (23-300); Total Protein,Serum 7.6 g/dl (6.3-8.2)
[2023-10-14 15:34] VITALS: BP 161/81; PULSE 80; RESP 18; TEMP 36.7; O2SAT 99
== END 2023-10-14 15:34 | disposition home or self-care (01) ==
PROVIDERS: Emergency Provider Nurse Practitioner Family
DX: A08.4 Viral intestinal infection, unspecified (principal); R10.819 Abdominal tenderness, unspecified site; R19.7 Diarrhea, unspecified; R11.0 Nausea
CPT/HCPCS: 80053; 81003; 82150; 83690; 85025; 87804; 99204; 99212; G0463

== ENCOUNTER 2023-10-24 09:26 | Emergency (ER) | payer BC, SELFPAY ==
[2023-10-24] VITALS (23 sets, daily range): BP systolic 110–158; BP diastolic 66–91; PULSE 72–101; RESP 18; TEMP 36.4–36.7; O2SAT 96–100; BMI 27.6
[2023-10-24 09:36] LABS: Microscopic, Urine URINE MICROSCOPIC (MICROSCOPIC)
--- NOTE | 2023-10-24 09:39 | PC.NURSE ---
pt was ssent from Dr Powell office due to worsening abdominal pain. he is supposed to start treatment for lymphoma on .
[2023-10-24 09:42] LABS: Appearance,Urine CLEAR (Clear); Blood, Urine Negative (Negative); Color,Urine YELLOW (Yellow); Glucose,Urine (UA) Negative (Negative); Ketones,Urine Negative (Negative); Leukocyte Esterase,Urine Negative (Negative); Nitrate,Urine Negative (Negative); Protein,Urine Negative (Negative); Specific Gravity, Urine 1.025 (1.005-1.030); Urobilinogen,Urine 0.2 EU/dl (0.2)
--- NOTE | 2023-10-24 09:47 | PC.NURSE ---
Dr. Hays at [facility] for pt eval
--- NOTE | 2023-10-24 09:50 | CT_ITS ---
FINAL REPORT TECHNIQUE: Oral and IV contrast enhanced exam. This study was performed with techniques to keep radiation doses as low as reasonably achievable (ALARA). Individualized dose reduction techniques using automated exposure control or adjustment of mA and/or kV according to the patient's size were employed. CLINICAL HISTORY: gen abdominal pain, h/o B cell lymph COMPARISON: 09/09/2023 FINDINGS: Abdomen: There is new minimal perihepatic ascites. Remaining solid abdominal organs are unremarkable. There is extensive retroperitoneal and mesenteric adenopathy. Confluent mesenteric lymph nodes well seen on image 46 measures 7.9 by 5.5 cm, previously measured 7.6 x 5.8 cm. Confluent retroperitoneal adenopathy well seen on image 44 measures 8.5 x 5.1 cm, unchanged. There is new small bowel distension filled with fluid in a pattern pattern suggestive of obstruction. Pelvis: There is abnormal thickening of distal jejunum and ileum suggestive of enteritis. The distal ileum is decompressed, pattern compatible with a partial small bowel obstruction. Soft tissue mass in the right lower quadrant mesentery measures 7.5 x 5.5 cm, previously measured 7.0 x 4.1 cm. Small to moderate amount of free fluid is identified. IMPRESSION: Partial distal small-bowel obstruction, possibly related to a soft tissue mass of the right lower quadrant mesentery which has mildly enlarged from prior exam. Interval development of long segment fold thickening of the distal small bowel which could represent enteritis. Extensive mesenteric and retroperitoneal adenopathy compatible with known lymphoma. Reviewed, Interpreted and Dictated by Jordan Tsai MD Transcribed by Johanna Dias Authenticated and [facility]
[2023-10-24 09:55] LABS: Basophils # 0.1 K/mm3 (0-0.2); Basophils % 1.1 % (0.1-2.0); Eosinophils # 0.4 K/mm3 (0.0-0.4); Eosinophils % 5.4 % (0.1-12.0); Hematocrit 39.5 % (42.0-52.0); Hemoglobin 12.6 g/dL (14.1-18.0); Lymphocytes # 0.8 K/mm3 (0.7-4.5); Mean Corpuscular HGB Conc 31.8 g/dL (31.8-35.4); Mean Corpuscular Hemoglobin 27.1 pg (27.0-31.2); Mean Corpuscular Volume 85.2 fl (80-94); Mean Platelet Volume 7.3 fl (7.4-10.4); Monocytes # 0.4 K/mm3 (0.1-1.0); Neutrophils # 4.8 K/mm3 (1.8-7.8); Neutrophils % 75.4 % (37.0-80.0); Platelet Count 396 K/mm3 (142-424); Red Blood Count 4.63 M/mm3 (4.60-6.20); Red Cell Distribution Width 13.8 % (11.5-17.5); White Blood Count 6.4 K/mm3 (4.8-10.8)
[2023-10-24 09:56] LABS: Chloride 100 mmol/L (98-107); Potassium 3.9 mmoL/L (3.5-5.1); Sodium 135 mmol/L (136-145)
[2023-10-24 09:58] LABS: Alanine Aminotransferase 43 U/L (12-78); Alkaline Phosphatase 108 U/L (38-126); Aspartate Amino Transferase 47 U/L (17-59); Bilirubin,Total 0.7 mg/dl (0.2-1.3); Blood Urea Nitrogen 6 mg/dl (9-20); Creatinine Clearance Estimated 102 mL/min (50-200); Estimated Glomerular Filt Rate 86 ml/min (>60); GFR (African American) 104 ML/MIN (>60)
[2023-10-24] MEDS: KETOROLAC 30MG/ML VIAL 15 MG IV (09:58)
[2023-10-24] MEDS: LACTATED RINGERS 1000ML 1,000 ML 999 ML IV (09:58)
[2023-10-24] MEDS: ONDANSETRON 4MG/2ML VIAL 4 MG IV (09:58)
[2023-10-24] MEDS: ACETAMINOPHEN 1,000MG/100ML VIAL 1000 MG IV (09:58)
[2023-10-24 09:59] LABS: Bilirubin,Urine 1+ (Negative)
[2023-10-24 09:59] LABS: Albumin Level 4.1 g/dl (3.5-5.0); Albumin/Globulin Ratio 1.3 (1.1-1.8); Anion Gap 7.9 mEq/L (5-15); Calcium 9.2 mg/dl (8.4-10.2); Carbon Dioxide 31 mmol/L (22.0-30.0); Globulin 3.2 g/dL (1.3-3.2); Glucose 113 mg/dl (74-100); Lipase 80 U/L (23-300); Total Protein,Serum 7.3 g/dl (6.3-8.2)
[2023-10-24] MEDS: MORPHINE 4MG/ML SYRINGE 4 MG IV ×3 (09:59→18:58)
[2023-10-24 10:00] LABS: Bacteria,Urine Trace /lpf; RBC,Urine Occasional #/hpf (0-3); Squamous Epithelial Cell,Urine Occasional #/hpf (0-5); WBC,Urine Occasional #/hpf (0-3)
[2023-10-24 10:01] LABS: Mucus,Urine 2+ /lpf
--- NOTE | 2023-10-24 10:04 | ED_ITS ---
<Statement entered by Grover Enriquez MD - 10/24/23 23:11> I was consulted by the NANCY, and we discussed the complexity of the problems being addressed. I approved the treatment and management plan for this patient's care in the emergency department, thus performing a substantive portion of the medical decision making. Grover Enriquez MD, DEVAN, FACEP Discharge Plan Disposition Patient Disposition: Still a Patient Chief Complaint: Abdominal Pain Prescriptions Prescriptions: No Action ondansetron 4 mg Tablet,Disintegrating 4 mg PO Q8H PRN (Reason: Nausea) Qty: 12 0RF Referrals Follow up/Referrals: Provider,Referral, [Primary Care Provider] - See instructions Clinical Impressions Clinical Impression: Lymphadenopathy, mesenteric, Abdominal pain, Partial small bowel obstruction Stand Alone Forms Stand Alone Forms: Transfer Record - ED Instructions Patient Instructions: DI for Acute Abdominal Pain Discharge ED Provider: Rossy Hays General Adult HPI General Chief complaint: Abdominal Pain Stated complaint: abd pain Time Seen by Provider: 10/24/23 09:31 Mode of Arrival: Ambulatory Source of Information: Patient Limitations: No Limitations Description of Symptoms (Recalled from ER Triage Doc. by RN): worsening belly pain. feels like its on fire History of Present Illness HPI narrative: This patient is a 58-year-old male with a history of diffuse large B-cell lymphoma and chronic mesenteric lymphadenopathy as a result of this presenting with concern for abdominal pain. Patient presented to his oncologist today for follow-up and noted that his pain in his abdomen has been much more severe, especially since last night. It has been worsening over the last few days, however. He notes that he feels like he has burning all over his entire abdomen. Even drinking water makes his symptoms worse. He states the pain is severe and he cannot stand it. No vomiting, changes in bowel movements, urinary symptoms, or other concerns. Related Data Previous Rx's Medication Instructions Recorded ondansetron 4 mg disintegrating 4 mg PO Q8H PRN Nausea #12 tabs 10/14/23 tablet Allergies Allergy/AdvReac Type Severity Reaction Status Date / Time No Known Drug Allergies Allergy Unknown Verified 10/24/23 09:21 [facility] Dis[facility]: The information contained in this section may have been updated after the patient was seen, as this information can be updated by other users. 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 Arrhythmia Surgical History History of arthroscopic knee surgery History of hand surgery Family History Other No significant family history Social History Smoking Status: Never smoker alcohol intake: never current occupational status: employed Travel in the last 8 weeks: None ROS Obtained: Yes All systems reviewed & no additional complaints except as documented Physical Exam General General appearance: alert and in no apparent distress Head Head exam: atraumatic and normocephalic Eye Eye exam: Present normal appearance, PERRL and EOMI ENT ENT exam: Present normal exam, normal oropharynx, mucous membranes moist and normal external ear exam Neck Neck exam: Present normal inspection, full ROM and trachea midline; Absent tenderness Chest Chest inspection: Present normal inspection and symmetric chest wall rise; Absent tenderness Respiratory Respiratory exam: Present normal lung sounds bilaterally; Absent respiratory distress, wheezes, stridor or accessory muscle use Cardiovascular Cardiovascular exam: Present regular rate and normal rhythm Abdominal Exam Abdominal exam: Present distention (Mild), tenderness (Generalized), guarding (Voluntary) and normal bowel sounds; Absent rebound or rigidity Extremities Exam Extremities exam: Present normal inspection, full ROM and normal capillary refill; Absent tenderness or edema Back Exam Back exam: Present normal inspection and full ROM; Absent tenderness Neurological Exam Neurological exam: Present alert, oriented X3, CN II-XII intact and normal gait; Absent motor sensory deficit Psychiatric Psychiatric exam: Present normal affect and normal mood Skin Skin exam: Present warm and dry Medical Decision Making Medical Records Medical records reviewed: Yes I reviewed the patient's medical records. Jose Inquiry Pt receiving controlled substance: No Vital Signs: 10/24/23 09:28 10/24/23 09:33 10/24/23 10:00 Temperature 97.6 F Temperature Source Oral Pulse Rate 95 H 92 H Pulse Rate [Right] 101 H Respiratory Rate 18 Blood Pressure 158/91 H 137/74 Blood Pressure [Right Arm] 150/91 H Blood Pressure Mean Blood Pressure Mean [Right Arm] 110 02 Sat by Pulse Oximetry 96 97 100 Oxygen Delivery Method Room Air Room Air Room Air 10/24/23 10:30 10/24/23 11:00 10/24/23 11:30 Temperature Temperature Source Pulse Rate 75 78 84 Pulse Rate [Right] Respiratory Rate Blood Pressure 144/72 H 119/69 136/87 Blood Pressure [Right Arm] Blood Pressure Mean 88 Blood Pressure Mean [Right Arm] 02 Sat by Pulse Oximetry 99 99 100 Oxygen Delivery Method Room Air Room Air 10/24/23 12:00 10/24/23 12:30 10/24/23 13:00 Temperature Temperature Source Pulse Rate 79 83 77 Pulse Rate [Right] Respiratory Rate Blood Pressure 129/74 128/78 140/79 Blood Pressure [Right Arm] Blood Pressure Mean Blood Pressure Mean [Right Arm] 02 Sat by Pulse Oximetry 100 100 99 Oxygen Delivery Method 10/24/23 13:30 10/24/23 13:55 10/24/23 14:00 Temperature Temperature Source Pulse Rate 75 76 81 Pulse Rate [Right] Respiratory Rate Blood Pressure 127/69 110/66 122/79 Blood Pressure [Right Arm] Blood Pressure Mean Blood Pressure Mean [Right Arm] 02 Sat by Pulse Oximetry 99 100 Oxygen Delivery Method 10/24/23 14:30 Temperature Temperature Source Pulse Rate 72 Pulse Rate [Right] Respiratory Rate Blood Pressure 131/75 Blood Pressure [Right Arm] Blood Pressure Mean Blood Pressure Mean [Right Arm] 02 Sat by Pulse Oximetry 99 Oxygen Delivery Method Lab Data Lab results reviewed: Yes I reviewed the patient's lab results. Lab Results 10/24/23 09:30: Urine Color Yellow, Urine Appearance Clear, Urine pH 6.0, Ur Specific [place] 1.025, Urine Protein Negative, Urine Glucose (UA) Negative, Urine Ketones Negative, Urine Blood Negative, Urine Nitrate Negative, Urine Bilirubin 1+ A, Urine Urobilinogen 0.2, Ur Leukocyte Esterase Negative, Urine RBC Occasional, Urine WBC Occasional, Ur Squamous Epith Cells Occasional, Urine Bacteria Trace, Urine Mucus 2+ 10/24/23 09:39: WBC 6.4, RBC 4.63, Hgb 12.6 L, Hct 39.5 L, MCV 85.2, MCH 27.1, MCHC 31.8, RDW 13.8, Plt Count 396, MPV 7.3 L, Neut % (Auto) 75.4, Lymph % (Auto) 12.0, [place] % (Auto) 6.0, Eos % (Auto) 5.4, Baso % (Auto) 1.1, Neut # (Auto) 4.8, Lymph # (Auto) 0.8, [place] # (Auto) 0.4, Eos # (Auto) 0.4, Baso # (Auto) 0.1, Sodium 135 L, Potassium 3.9, Chloride 100, Carbon Dioxide 31 H, Anion Gap 7.9, BUN 6 L, Creatinine 0.90, Estimated Creat Clear 102, Estimated GFR 86, Est GFR ( Amer) 104, Glucose 113 H, Lactate 0.8, Calcium 9.2, Total Bilirubin 0.7, AST 47, ALT 43, Alkaline Phosphatase 108, Total Protein 7.3, Albumin 4.1, Globulin 3.2, Albumin/Globulin Ratio 1.3, Lipase 80 10/24/23 09:39 10/24/23 09:39 Orders (Tests/Meds): ED MEDICATIONS Generic Name Dose Route Start Last Admin Trade Name Freq PRN Reason Stop Dose Admin Lactated Ringer's 1,000 mls @ 125 mls/hr 10/24/23 12:15 10/24/23 14:38 Lactated Ringer's 1000 Ml Bag IV 11/23/23 12:14 125 mls/hr .Q8H DEVON Administration Morphine Sulfate 4 mg 10/24/23 15:11 10/24/23 15:14 Morphine 4mg/Ml Syringe IV 11/23/23 15:10 4 mg Q2HP PRN Administration pain Ondansetron HCl 4 mg 10/24/23 15:11 Ondansetron 4mg/2ml Vial IV 11/23/23 15:10 Q8HP PRN Nausea And Vomiting Discontinued Medications Generic Name Dose Route Start Last Admin Trade Name Freq PRN Reason Stop Dose Admin Acetaminophen 1,000 mg 10/24/23 09:49 10/24/23 09:58 Acetaminophen 1,000mg/100ml Vial IV 10/24/23 09:50 1,000 mg ONCE ONE Administration Lactated Ringer's 1,000 mls @ 999 mls/hr 10/24/23 09:49 10/24/23 09:58 Lactated Ringer's 1000 Ml Bag IV 10/24/23 10:49 999 mls/hr .Q1H1M ONE Administration Iopamidol 75 ml 10/24/23 10:25 10/24/23 10:26 Iopamidol-370 (76%);100ml Bottle IV 10/24/23 10:26 75 ml ONCE ONE Administration Ketorolac Tromethamine 15 mg 10/24/23 09:49 10/24/23 09:58 Ketorolac 30mg/Ml Vial IV 10/24/23 09:50 15 mg ONCE ONE Administration Morphine Sulfate 4 mg 10/24/23 09:49 10/24/23 09:59 Morphine 4mg/Ml Syringe IV 10/24/23 09:50 4 mg ONCE ONE Administration Ondansetron HCl 4 mg 10/24/23 09:49 10/24/23 09:58 Ondansetron 4mg/2ml Vial IV 10/24/23 09:50 4 mg ONCE ONE Administration Sodium Chloride 10 ml 10/24/23 10:25 10/24/23 10:26 Sodium Chloride 0.9% 10ml Syr (Rad Only) IV 10/24/23 10:26 10 ml ONCE ONE Administration ORDERS Category Date Time Status CT abdomen pelvis w con Stat Cat Scan 10/24/23 09:50 Completed Complete Blood Count Auto Diff Stat Lab 10/24/23 09:39 Completed Comprehensive Metabolic Panel Stat Lab 10/24/23 09:39 Completed Lactic Acid Stat Lab 10/24/23 09:39 Completed Lipase Stat Lab 10/24/23 09:39 Completed UA [Urinalysis and Microscopic] Stat Lab 10/24/23 09:30 Completed Medical Decision Narrative: In summary, this patient is a 58-year-old male presenting to the Emergency Department for evaluation of severe abdominal pain. Differential diagnoses considered include but are not limited to worsening B-cell lymphoma, bowel obstruction, constipation, colitis, pancreatitis, cholecystitis, appendicitis. Ruling out the most morbid conditions drove assessment. It should be noted patient's history includes diffuse large B-cell lymphoma which is not at goal therapy, as he has not yet started treatment. This complicates all aspects of care by increasing patient's risk for morbidity. I reviewed patient's past medical records and noted previous evaluations by his oncologist for his B-cell lymphoma with plans to start upcoming chemotherapy. Patient has generalized tenderness with mild abdominal distention and voluntary guarding on clinical exam. Workup included CBC, CMP, lipase, lactic acid, urinalysis, and CT abdomen and pelvis with IV contrast. He was given a bolus of IV fluids as well as IV morphine, Toradol, acetaminophen, and Zofran for symptomatic improvement. I independently interpreted CT scan prior to the radiologist read and noted transfer small bowel obstruction. Please see their read for final interpretation. Radiology notes that this is because of a mass in the right lower quadrant. Labs were obtained that demonstrated no acutely concerning abnormalities. On reassessment, patient had good improvement after administration of interventions above. He is now comfortable.. Given that the patient has a bowel obstruction related to likely soft tissue mass in the right lower quadrant per radiology read, I feel the patient would benefit from evaluation at higher level of care with surgical oncology should he need surgical intervention. I called and had an interactive discussion with Remedios Macias [facility] who advised that [facility] would [facility] to [facility]. They will call back with a bed, which should be today, but she is not positive. At 1215, patient was placed in ED observation status pending transfer to [facility]. The patient was provided serial reevaluations and cardiac monitoring while awaiting transfer. On multiple subsequent reassessments, the patient is in no acute distress. He did request more pain medication, so IV morphine and Zofran were ordered as needed. I had an indirect discussion with the hospitalist, Dr. Juarez, who advised that if the patient is not transferred to by 5 PM, to call and reassess and he would be happy to help take care of the patient pending transfer. Patient care signed out to the oncoming provider, Dr. Enriquez, at 1500. Critical Care Critical Care Time Critical Care Time: No
[2023-10-24 10:05] LABS: Lactic Acid 0.8 mmol/L (0.7-2.1)
--- NOTE | 2023-10-24 10:19 | PC.NURSE ---
PT TO CT
[2023-10-24] MEDS: SODIUM CHLORIDE 0.9% 10ML SYR (RAD ONLY) 10 ML IV (10:26)
[2023-10-24] MEDS: IOPAMIDOL-370 (76%);100ML BOTTLE 75 ML IV (10:26)
--- NOTE | 2023-10-24 10:27 | PC.NURSE ---
PT RETURNED FROM CT
--- NOTE | 2023-10-24 11:23 | PC.NURSE ---
Called radiology to power-share images to [facility] and prepare a disc per Dr. Hays
--- NOTE | 2023-10-24 11:26 | PC.NURSE ---
dr mosher at bedside to update pt
--- NOTE | 2023-10-24 11:40 | PC.NURSE ---
[facility]ays [facility], Carter Maicas APRN.
--- NOTE | 2023-10-24 12:12 | PC.NURSE ---
Pt accepted to surgical oncology. Waiting on bed at this.
--- NOTE | 2023-10-24 12:17 | PC.NURSE ---
dr mosher at bedside to update pt on poc
--- NOTE | 2023-10-24 13:33 | PC.NURSE ---
Dr. Hays at bedside
--- NOTE | 2023-10-24 13:40 | PC.NURSE ---
Radiology power-sharing recent CT from this year. PET scan not available d/t being performed at [facility]. I called them and they can power-share those images when [facility] faxes a request for it. updated on this.
--- NOTE | 2023-10-24 14:30 | PC.NURSE ---
Rounded on pt. No needs voiced at this time. Call light within reach.
--- NOTE | 2023-10-24 14:34 | PC.NURSE ---
SPOKE WITH [facility] FOR BED UPDATE. STATES IN PROGRESS BUT NO BED YET. WILL CALL BACK
[2023-10-24] MEDS: LACTATED RINGERS 1000ML 1,000 ML 125 ML IV (14:38)
--- NOTE | 2023-10-24 14:57 | PC.NURSE ---
HOSPITAL BED SET-UP FOR PT AT THIS TIME WHILE WAITING FOR BED
--- NOTE | 2023-10-24 15:00 | PC.NURSE ---
pt reports increased pain in abdomen. spoke with MD. new orders received
--- NOTE | 2023-10-24 16:55 | PC.NURSE ---
accepted to [facility] a 11th floor room 119
--- NOTE | 2023-10-24 17:01 | PC.NURSE ---
report called to [facility]
--- NOTE | 2023-10-24 17:38 | PC.NURSE ---
Rounded on pt. Ice chips provided. No other needs voiced and call light remains within reach
--- NOTE | 2023-10-24 18:58 | PC.NURSE ---
Called EMS to check status d/t other [place] the [place] 20 min. Della Aguirre EMT-P states it should be here soon . Pt & her spouse updated on this information.
== END 2023-10-24 19:12 | disposition short-term general hospital (02) ==
PROVIDERS: Emergency Provider Emergency Medicine
DX: R10.84 Generalized abdominal pain (principal); K56.600 Partial intestinal obstruction, unspecified as to cause; I88.0 Nonspecific mesenteric lymphadenitis; C83.30 Diffuse large B-cell lymphoma, unspecified site
CPT/HCPCS: 74177; 80053; 81001; 83605; 83690; 85025; 96361; 96374; 96375; 96376; 99285; J0131; J2405; Q9967